=== PATIENT | female | born 1985 | race American Indian/Alaskan Native ===

== ENCOUNTER 2018-02-03 20:42 | Emergency (ER) | payer SELFPAY ==
[2018-02-03] MEDS ORDERED: NACL 0.9% 1000 ML 1,000 ML IV ONE (22:14)
[2018-02-03 22:52] LABS: Bacteria,Urine 1+ /HPF (Negative); Bilirubin,Urine NEG (Negative); Blood,Urine NEG (Negative); Color,Urine Yellow (Yellow); Mucus,Urine FEW /HPF; Protein,Urine <15 mg/dL mg/dL (Negative)
[2018-02-03 23:02] LABS: Basophils # (Auto) 0.1 K/mm3 (0.0-0.1); Basophils % (Auto) 0.4 % (0.0-1.8); Eosinophils # (Auto) 0.2 K/mm3 (0.0-0.4); Hematocrit 39.5 % (30.3-42.9); Hemoglobin 13.6 gm/dl (10.1-14.3); Lymphocytes # (Auto) 2.9 K/mm3 (1.2-5.4); Lymphocytes % (Auto) 17.5 % (13.4-35.0); Mean Corpuscular HGB Conc 34 % (30-34); Mean Corpuscular Hemoglobin 30 pg (28-32); Mean Corpuscular Volume 87 fl (79-97); Monocytes # (Auto) 0.9 K/mm3 (0.0-0.8); Monocytes % (Auto) 5.5 % (0.0-7.3); Platelet Count 225 K/mm3 (140-440); Red Blood Count 4.53 M/mm3 (3.65-5.03); Red Cell Distribution Width 14.5 % (13.2-15.2)
[2018-02-03 23:23] LABS: Alanine Aminotransferase 11 units/L (7-56); Albumin 3.8 g/dL (3.9-5); BUN/Creatinine Ratio 13; Blood Urea Nitrogen 8 mg/dL (7-17); Calcium 8.7 mg/dL (8.4-10.2); Hemolysis Index 4; Lipase 53 units/L (13-60)
--- NOTE | 2018-02-04 02:20 | Emergency Department Report ---
ED Abdominal Pain HPI - General Chief Complaint: Abdominal Pain Stated Complaint: CONSTIPATION Time Seen by Provider: 02/04/18 02:02 Source: patient Mode of arrival: Ambulatory Limitations: No Limitations - History of Present Illness Initial Comments: 32-year-old female with past medical history seizures (last seizure 10 years ago ) presents to the hospital with complaints of positive test and lower abdominal pain. Patient's LMP was December 20. She had 2 positive home test prior to ED visit. No care has been initiated. This is her first . She complains of intermittent suprapubic abdominal pain that is worse is 10/10 in intensity. Currently pain is mild and only aggravated by direct pressure. She has not had a bowel movement in 3 days. 2 episodes of vomiting today. Mild white discharge reported without odor. No vaginal bleeding, fever, or dysuria reported. - Related Data Previous Rx's Medication Instructions Recorded Last Taken Type Ondansetron [Zofran Odt] 4 mg PO Q8HR PRN #20 tab.rapdis 02/04/18 Unknown Rx Vit Calc,Iron,Folic 1 each PO DAILY #30 tablet 02/04/18 Unknown Rx [ Vitamins] Allergies Allergy/AdvReac Type Severity Reaction Status Date / Time No Known Allergies Allergy Verified 02/04/18 02:11 ED Review of Systems ROS: Stated complaint: CONSTIPATION Other details as noted in HPI Comment: All other systems reviewed and negative ED Past Medical Hx - Past Medical History Hx Seizures: Yes (last seizure was 10 years ago) - Surgical History Past Surgical History?: No - Social History Smoking Status: Current Every Day Smoker Substance Use Type: Alcohol, Marijuana - Medications Home Medications: Home Medications Medication Instructions Recorded Confirmed Last Taken Type Ondansetron [Zofran Odt] 4 mg PO Q8HR PRN #20 tab.rapdis 02/04/18 Unknown Rx Vit Calc,Iron,Folic 1 each PO DAILY #30 tablet 02/04/18 Unknown Rx [ Vitamins] ED Physical Exam - General Limitations: No Limitations - Other Other exam information: General: No limitations, patient is alert in no acute distress Head exam: Atraumatic, normocephalic Eyes exam: Normal appearance ENT: Moist mucous membrane, normal oropharynx Neck exam: Normal inspection, full range of motion, no meningismus nontender Respiratory exam: Clear to auscultation bilateral, no wheezes, rales, crackles Cardiovascular: Normal rate and rhythm, normal heart sounds Abdomen: Soft, nondistended, mild suprapubic tenderness on palpation, with normal bowel sounds, no rebound, or guarding Extremity: Full range of motion normal inspection no deformity Back: Normal Inspection, full range of motion, no tenderness Neurologic: Alert, oriented x3, cranial nerves intact, no motor or sensory deficit Psychiatric: normal affect, normal mood Skin: Warm, dry, intact ED Course Vital Signs 02/03/18 02/03/18 02/04/18 21:18 21:56 00:27 Temperature 98.6 F 98.6 F Pulse Rate 73 76 69 Respiratory 14 14 17 Rate Blood Pressure 107/69 107/69 O2 Sat by Pulse 99 99 100 Oximetry 02/04/18 00:30 Temperature Pulse Rate 74 Respiratory 22 Rate Blood Pressure 103/67 O2 Sat by Pulse 100 Oximetry ED Medical Decision Making - Lab Data Result diagrams: 02/03/18 22:35 02/03/18 22:35 Lab Results 02/03/18 02/03/18 02/03/18 Range/Units 22:14 22:35 22:35 WBC 16.3 H (4.5-11.0) K/mm3 RBC 4.53 (3.65-5.03) M/mm3 Hgb 13.6 (10.1-14.3) gm/dl Hct 39.5 (30.3-42.9) % MCV 87 (79-97) fl MCH 30 (28-32) pg MCHC 34 (30-34) % RDW 14.5 (13.2-15.2) % Plt Count 225 (140-440) K/mm3 Lymph % (Auto) 17.5 (13.4-35.0) % Wise % (Auto) 5.5 (0.0-7.3) % Eos % (Auto) 1.0 (0.0-4.3) % Baso % (Auto) 0.4 (0.0-1.8) % Lymph # 2.9 (1.2-5.4) K/mm3 Wise # 0.9 H (0.0-0.8) K/mm3 Eos # 0.2 (0.0-0.4) K/mm3 Baso # 0.1 (0.0-0.1) K/mm3 Seg Neutrophils % 75.6 H (40.0-70.0) % Seg Neutrophils # 12.4 H (1.8-7.7) K/mm3 Sodium 139 (137-145) mmol/L Potassium 4.0 (3.6-5.0) mmol/L Chloride 100.8 (98-107) mmol/L Carbon Dioxide 25 (22-30) mmol/L Anion Gap 17 mmol/L BUN 8 (7-17) mg/dL Creatinine 0.6 L (0.7-1.2) mg/dL Estimated GFR > 60 ml/min BUN/Creatinine Ratio 13 % Glucose 78 (65-100) mg/dL Calcium 8.7 (8.4-10.2) mg/dL Total Bilirubin 0.20 (0.1-1.2) mg/dL AST 15 (5-40) units/L ALT 11 (7-56) units/L Alkaline Phosphatase 39 (35-129) units/L Total Protein 5.7 L (6.3-8.2) g/dL Albumin 3.8 L (3.9-5) g/dL Albumin/Globulin Ratio 2.0 % Lipase 53 (13-60) units/L HCG, Quant (0-4) mIU/mL Urine Color Yellow (Yellow) Urine Turbidity Slightly-cloudy (Clear) Urine pH 6.0 (5.0-7.0) Ur Specific Dana 1.016 (1.003-1.030) Urine Protein <15 mg/dl (Negative) mg/dL Urine Glucose (UA) Neg (Negative) mg/dL Urine Ketones Neg (Negative) mg/dL Urine Blood Neg (Negative) Urine Nitrite Neg (Negative) Urine Bilirubin Neg (Negative) Urine Urobilinogen 2.0 (<2.0) mg/dL Ur Leukocyte Esterase Tr (Negative) Urine WBC (Auto) 6.0 (0.0-6.0) /HPF Urine RBC (Auto) 1.0 (0.0-6.0) /HPF U Epithel Cells (Auto) 6.0 (0-13.0) /HPF Urine Bacteria (Auto) 1+ (Negative) /HPF Urine Mucus Few /HPF /15/18 Range/Units 22:35 WBC (4.5-11.0) K/mm3 RBC (3.65-5.03) M/mm3 Hgb (10.1-14.3) gm/dl Hct (30.3-42.9) % MCV (79-97) fl MCH (28-32) pg MCHC (30-34) % RDW (13.2-15.2) % Plt Count (140-440) K/mm3 Lymph % (Auto) (13.4-35.0) % Wise % (Auto) (0.0-7.3) % Eos % (Auto) (0.0-4.3) % Baso % (Auto) (0.0-1.8) % Lymph # (1.2-5.4) K/mm3 Wise # (0.0-0.8) K/mm3 Eos # (0.0-0.4) K/mm3 Baso # (0.0-0.1) K/mm3 Seg Neutrophils % (40.0-70.0) % Seg Neutrophils # (1.8-7.7) K/mm3 Sodium (137-145) mmol/L Potassium (3.6-5.0) mmol/L Chloride (98-107) mmol/L Carbon Dioxide (22-30) mmol/L Anion Gap mmol/L BUN (7-17) mg/dL Creatinine (0.7-1.2) mg/dL Estimated GFR ml/min BUN/Creatinine Ratio % Glucose (65-100) mg/dL Calcium (8.4-10.2) mg/dL Total Bilirubin (0.1-1.2) mg/dL AST (5-40) units/L ALT (7-56) units/L Alkaline Phosphatase (35-129) units/L Total Protein (6.3-8.2) g/dL Albumin (3.9-5) g/dL Albumin/Globulin Ratio % Lipase (13-60) units/L HCG, Quant 65045 H (0-4) mIU/mL Urine Color (Yellow) Urine Turbidity (Clear) Urine pH (5.0-7.0) Ur Specific Dana (1.003-1.030) Urine Protein (Negative) mg/dL Urine Glucose (UA) (Negative) mg/dL Urine Ketones (Negative) mg/dL Urine Blood (Negative) Urine Nitrite (Negative) Urine Bilirubin (Negative) Urine Urobilinogen (<2.0) mg/dL Ur Leukocyte Esterase (Negative) Urine WBC (Auto) (0.0-6.0) /HPF Urine RBC (Auto) (0.0-6.0) /HPF U Epithel Cells (Auto) (0-13.0) /HPF Urine Bacteria (Auto) (Negative) /HPF Urine Mucus /HPF - Radiology Data Radiology results: report reviewed FINAL REPORT PROCEDURE: US OB TRANSVAGINAL TECHNIQUE: Real-time transabdominal and transvaginal sonography of the uterus, placenta, amniotic fluid, adnexa, and fetus was performed with image documentation. Measurements were obtained to determine age/size. M-mode Doppler was used to document heartbeat. CPT 34142 and 81511 HISTORY: abd pain + test COMPARISON: No prior studies are available for comparison. FINDINGS: ADDITIONAL GESTATION: None. Yolk Sac: Normal. Gestational Sac: There is a gestational sac within the uterus. The gestational sac size of 10 millimeters corresponds to gestational age of approximately 5 weeks. No pole is identified. The yolk sac is seen. Cervix: Normal. Right Ovary: Normal. Left Ovary: There is a large dominant cyst on the left ovary this measures 38 millimeters. Uterus and adnexa: As above IMPRESSION: There is a gestational sac within the uterus. A yolk sac is identified. The gestational age is approximately 5 weeks. No pole is seen at this time. Recheck study in approximately 14 days would be appropriate. Dominant cyst left ovary measures 38 millimeters. FINAL REPORT PROCEDURE: US OB transabdominal and transvaginal TECHNIQUE: Real- time transabdominal and transvaginal sonography of the uterus, placenta, amniotic fluid, adnexa, and fetus was performed with image documentation. Measurements were obtained to determine age/size. M-mode Doppler was used to document heartbeat. CPT 19727 and 26029 HISTORY: abd pain + test COMPARISON: No prior studies are available for comparison. FINDINGS: ADDITIONAL GESTATION: None. Yolk Sac: Normal. Gestational Sac: There is a gestational sac within the uterus. The gestational sac size of 10 millimeters corresponds to gestational age of approximately 5 weeks. No pole is identified. The yolk sac is seen. Cervix: Normal. Right Ovary: Normal. Left Ovary: There is a large dominant cyst on the left ovary this measures 38 millimeters. Uterus and adnexa: As above IMPRESSION: There is a gestational sac within the uterus. A yolk sac is identified. The gestational age is approximately 5 weeks. No pole is seen at this time. Recheck study in approximately 14 days would be appropriate. Dominant cyst left ovary measures 38 millimeters. - Medical Decision Making Patient with intermittent pelvic pain +5 week IUP Urine and other labs unremarkable Plan to discharge with Tylenol and Zofran when necessary pain and nausea [employer]ER follow-up - Differential Diagnosis , UTI, PID, ectopic Critical Care Time: No Critical care attestation.: If time is entered above; I have spent that time in minutes in the direct care of this critically ill patient, excluding procedure time. ED Disposition Clinical Impression: 5 weeks gestation of Disposition: DC- TO HOME OR SELFCARE Is pt being admited?: No Does the pt Need Aspirin: No Condition: Stable Instructions: (ED) Additional Instructions: Take the medication as prescribed. Follow up with your doctor. Return if symptoms worsen as indicated by your discharge instructions Prescriptions: Ondansetron [Zofran Odt] 4 mg PO Q8HR PRN #20 tab.rapdis PRN Reason: Nausea And Vomiting Vit Calc,Iron,Folic [ Vitamins] 1 each PO DAILY #30 tablet Referrals: [facility] [Provider Group] - 3-5 Days Forms: Work/School Release Form(ED) Time of Disposition: 04:20
--- NOTE | 2018-02-04 03:23 | Ultrasound Report ---
FINAL REPORT PROCEDURE: US OB TRANSVAGINAL TECHNIQUE: Real-time transabdominal and transvaginal sonography of the uterus, placenta, amniotic fluid, adnexa, and fetus was performed with image documentation. Measurements were obtained to determine age/size. M-mode Doppler was used to document heartbeat. CPT 47371 and 49482 HISTORY: abd pain + test COMPARISON: No prior studies are available for comparison. FINDINGS: ADDITIONAL GESTATION: None. Yolk Sac: Normal. Gestational Sac: There is a gestational sac within the uterus. The gestational sac size of 10 millimeters corresponds to gestational age of approximately 5 weeks. No pole is identified. The yolk sac is seen. Cervix: Normal. Right Ovary: Normal. Left Ovary: There is a large dominant cyst on the left ovary this measures 38 millimeters. Uterus and adnexa: As above IMPRESSION: There is a gestational sac within the uterus. A yolk sac is identified. The gestational age is approximately 5 weeks. No pole is seen at this time. Recheck study in approximately 14 days would be appropriate. Dominant cyst left ovary measures 38 millimeters.
--- NOTE | 2018-02-04 03:24 | Ultrasound Report ---
FINAL REPORT PROCEDURE: US OB transabdominal and transvaginal TECHNIQUE: Real-time transabdominal and transvaginal sonography of the uterus, placenta, amniotic fluid, adnexa, and fetus was performed with image documentation. Measurements were obtained to determine age/size. M-mode Doppler was used to document heartbeat. CPT 07392 and 24604 HISTORY: abd pain + test COMPARISON: No prior studies are available for comparison. FINDINGS: ADDITIONAL GESTATION: None. Yolk Sac: Normal. Gestational Sac: There is a gestational sac within the uterus. The gestational sac size of 10 millimeters corresponds to gestational age of approximately 5 weeks. No pole is identified. The yolk sac is seen. Cervix: Normal. Right Ovary: Normal. Left Ovary: There is a large dominant cyst on the left ovary this measures 38 millimeters. Uterus and adnexa: As above IMPRESSION: There is a gestational sac within the uterus. A yolk sac is identified. The gestational age is approximately 5 weeks. No pole is seen at this time. Recheck study in approximately 14 days would be appropriate. Dominant cyst left ovary measures 38 millimeters.
[2018-02-04 04:27] VITALS: BP 107/71
== END 2018-02-04 04:45 | disposition home or self-care (01) ==
LOC: ED 20:42
DX: O26.891 Other specified pregnancy related conditions, first trimester (principal); O21.9 Vomiting of pregnancy, unspecified; R10.2 Pelvic and perineal pain; N89.8 Other specified noninflammatory disorders of vagina; K59.00 Constipation, unspecified; Z3A.01 Less than 8 weeks gestation of pregnancy
CPT/HCPCS: 36415; 76801; 76817; 80053; 81001; 83690; 84702; 85025

== ENCOUNTER 2018-10-02 14:56 | Outpatient (CLI) | payer OTHER ==
[2018-10-02 15:19] VITALS: BP 132/86
[2018-10-02 16:06] LABS: Bilirubin,Urine NEG (Negative); Blood,Urine MOD (Negative); Color,Urine Yellow (Yellow); Mucus,Urine FEW /HPF; Urobilinogen,Urine < 2.0 mg/dL (<2.0)
== END 2018-10-02 17:04 | disposition home or self-care (01) ==
LOC: TRG 14:56
PROVIDERS: ATTEND Obstetrics & Gynecology
DX: O47.1 False labor at or after 37 completed weeks of gestation (principal); Z3A.39 39 weeks gestation of pregnancy
CPT/HCPCS: 81001

== ENCOUNTER 2018-10-07 07:25 | Inpatient (IN) | payer OTHER ==
[2018-10-07] MEDS ORDERED: LACTATED RINGERS 1,000 ML ONE (07:36)
[2018-10-07] MEDS ORDERED: AMPICILLIN/NS 2 GM/100 ML 2 GM/100 ML BAG IV ONE (09:00)
[2018-10-07] MEDS ORDERED: BRETHINE IVP PRN (09:00)
[2018-10-07] MEDS ORDERED: XYLOCAINE 2% INFILTRATI ONE (09:00)
[2018-10-07] MEDS ORDERED: BRETHINE SUB-Q PRN (09:00)
[2018-10-07] MEDS ORDERED: SUBLIMAZE IV PRN (09:00)
[2018-10-07] MEDS ORDERED: ZOFRAN IV PRN ×2 (09:00→17:06)
[2018-10-07] MEDS ORDERED: LACTATED RINGERS 1,000 ML IV SCH (09:00)
[2018-10-07] MEDS ORDERED: PITOCin/NS 20 UNIT/1000ML DRIP 20 UNITS/1,000 ML BAG IV SCH ×2 (09:00→18:00)
--- NOTE | 2018-10-07 09:06 | History and Physical Report ---
History of Present Illness Date of examination: 10/07/18 Date of admission: 10/07/18 08:58 Chief complaint: SROM clear at 0615 History of present illness: Menstrual History Regularity: regular Menses every: 28 days Duration: 3-5 LMP: 11/2017 LMP reliability: month known test type: urine test Date: 02/21/2018 BC at conception: none Planned ? 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 of genital herpes: no Rash, Viral, or Febrile illness since last LMP? no Varicella/Chicken Pox Status: Previous Disease Genetic History Congenital Heart Defect: Mom: no Dad: no Katy Disease: Mom: no Dad: no Thalassemia Mom: no Dad: no Neural Tube Defect Mom: no Dad: no Down's Syndrome Mom: no Dad: no Silver-Sachs Mom: no Dad: no Sickle Cell Disease/Trait Mom: no Dad: no Hemophilia Mom: no Dad: no Muscular Dystrophy Mom: no Dad: no Cystic Fibrosis Mom: no Dad: no Barnes Chorea Mom: no Dad: no Mental Retardation Mom: no Dad: no Fragile X Mom: no Dad: no Other Genetic/Chromosomal Disorder Mom: no Dad: no Child w/other defect Mom: no Dad: no Enviromental Exposures Xray Exposure: no Medication, drug, or alcohol use since LMP: no Chemical/Other Exposure: no Exposure to Cat Liter: no Hx of Parvovirus (Fifth Disease): no Occupational Exposure to Children: none Active Medications (reviewed today): PROMETHAZINE HCL 25 MG ORAL TABLET (PROMETHAZINE HCL) 1 tab po q6hrs prn PNV () Current Allergies (reviewed today): No known allergies Past History Past Medical History: other (see HPI) Past Surgical History: other (see HPI) PEDIATRIC NEPHROLOGIST History: other (see HPI) Family/Genetic History: other (see HPI) Social history: other (see HPI) - Obstetrical History Expected Date of Delivery: 10/04/18 Actual Gestation: 40 Week(s) 3 Day(s) : 1 Medications and Allergies Allergies Allergy/AdvReac Type Severity Reaction Status Date / Time No Known Allergies Allergy Verified 02/04/18 02:11 Home Medications Medication Instructions Recorded Confirmed Last Taken Type Ondansetron [Zofran Odt] 4 mg PO Q8HR PRN #20 tab.rapdis 02/04/18 Unknown Rx Vit Calc,Iron,Folic 1 each PO DAILY #30 tablet 02/04/18 Unknown Rx [ Vitamins] Active Meds: Active Medications Butorphanol Tartrate (Stadol) 2 mg IV Q2H PRN PRN Reason: Pain , Severe (7-10) Ephedrine Sulfate (Ephedrine Sulfate) 10 mg IV Q2M PRN PRN Reason: Hypotension Fentanyl (Sublimaze) 100 mcg IV Q2H PRN PRN Reason: Labor Pain Oxytocin/Sodium Chloride (Pitocin/Ns 20 Unit/1000ml Drip) 20 units in 1,000 mls @ 125 mls/hr IV DIRECT MICHELLE Oxytocin/Sodium Chloride (Pitocin/Ns 30 Unit/500ml) 30 units in 500 mls @ 4 mls/hr IV TITR MICHELLE; Protocol Lactated Ringer's (Lactated Ringers) 1,000 mls @ 125 mls/hr IV DIRECT MICHELLE Ampicillin Sodium (Ampicillin/Ns 1 Gm/50 Ml) 1 gm in 50 mls @ 100 mls/hr IV Q4HR MICHELLE; Protocol Ampicillin Sodium (Polycillin/Ns 2 Gm/100 Ml) 2 gm in 100 mls @ 100 mls/hr IV ONCE ONE; Protocol Stop: 10/07/18 09:59 Mineral Oil (Mineral Oil) 30 ml PO QHS PRN PRN Reason: Constipation Ondansetron HCl (Zofran) 4 mg IV Q8H PRN PRN Reason: Nausea And Vomiting Terbutaline Sulfate (Brethine) 0.25 mg SUB-Q ONCE PRN PRN Reason: Hyperstimulation/Hypertonicity Terbutaline Sulfate (Brethine) 0.25 mg IVP ONCE PRN PRN Reason: Hyperstimulation/Hypertonicity Review of Systems All systems: negative Genitourinary: leakage of fluid, contractions - Vital Signs Vital signs: Vital Signs Pulse BP 84 168/108 10/07/18 07:41 10/07/18 07:41 Temp Pulse Resp BP Pulse Ox 88 158/95 10/07/18 08:34 10/07/18 08:34 - Physical Exam Breasts: Positive: normal Cardiovascular: Regular rate, Normal S1, Normal S2 Lungs: Positive: Clear to auscultation Abdomen: Positive: normal appearance, soft, normal bowel sounds. Negative: distention, tenderness Vulva: both: normal Vagina: Positive: normal moisture. Negative: discharge Cervix: Negative: lesion, discharge Uterus: Positive: normal size, normal contour Adnexa: both: normal Anus/Rectum: Positive: normal perianal skin, heme negative. Negative: rectal mass, hemorrhoids Extremities: Deep Tendon Reflex Grade: Normal +2 - Obstetrical FHR: auscultation normal, category 1 Uterine Contraction Monitor Mode: External Cervical Dilatation: 1 Cervical Effacement Percentage: 100 station: -1 Uterine Contraction Pattern: Irregular Uterine Tone Measurement Phase: Contraction Uterine Contraction Intensity: Mild Results Result Diagrams: 10/07/18 07:21 10/07/18 07:21 All other labs normal. Assessment and Plan 33 y.o. at 40w3d presents to triage via EMS for c/o "my water broke". Spec exam shows pooling of clear amniotic fluid coming from cervix, nitrizine +, SVE 1/100/-1 vtx. Elevated BPs noted, PIH labs sent. Patient denies any PIH s/s at this time. Routine admission orders and magnesium per protocol in EMR. Pt is GBS +, abx ordered. Will begin pitocin at this time, anticipate . Dr. Kaiser aware of assessment and admission.
[2018-10-07 09:07] LABS: Hematocrit 35.3 % (30.3-42.9); Hemoglobin 11.9 gm/dl (10.1-14.3); Mean Corpuscular HGB Conc 34 % (30-34); Mean Corpuscular Volume 87 fl (79-97); Platelet Count 174 K/mm3 (140-440); Red Blood Count 4.08 M/mm3 (3.65-5.03); Red Cell Distribution Width 14.9 % (13.2-15.2)
[2018-10-07 09:17] LABS: Alanine Aminotransferase 10 units/L (7-56); Uric Acid 6.6 mg/dL (3.5-7.6)
[2018-10-07] MEDS ORDERED: MAGNESIUM SULFATE 4GM/100ML 4 GM/100 ML BAG IV ONE (09:21)
[2018-10-07 09:35] LABS: Bacteria,Urine 1+ /HPF (Negative); Bilirubin,Urine NEG (Negative); Blood,Urine SM (Negative); Color,Urine Straw (Yellow); Mucus,Urine FEW /HPF; Urobilinogen,Urine < 2.0 mg/dL (<2.0)
[2018-10-07 09:41] LABS: Amphetamine Screen,Urine PRESUMPTIVE NEGATIVE; Benzodiazepines Screen,Urine PRESUMPTIVE NEGATIVE; Cannabinoid Screen,Urine PRESUMPTIVE NEGATIVE; Cocaine Screen,Urine PRESUMPTIVE NEGATIVE; Methadone Screen,Urine PRESUMPTIVE NEGATIVE; Opiate Screen,Urine PRESUMPTIVE NEGATIVE
[2018-10-07] MEDS ORDERED: MAGNESIUM SULFATE 40GM/1000ML 40 GM/1,000 ML BAG IV SCH (10:00)
[2018-10-07] MEDS: PITOCin/NS 30 UNIT/500ML 30 UNITS/500 ML BAG IV SCH ×2 (11:15→12:27)
[2018-10-07] MEDS: STADOL IV PRN ×2 (12:24→15:30)
[2018-10-07] MEDS ORDERED: AMPICILLIN/NS 1 GM/50 ML 1 GM/50 ML BAG IV SCH (14:00)
[2018-10-07] MEDS ORDERED: APRESOLINE IV PRN ×2 (14:18→17:21)
--- NOTE | 2018-10-07 14:23 | Event Note ---
Date: 10/07/18 SVE 1.5/100/-1. Category 1 tracing at this time. MVUs approx 265. Pitocin infusing at 20mu/min. Patient reports intense pain, IV stadol has been given x1. Patient declines epidural stating "I don't want to be paralyzed". DWP epidural process and offered patient to speak with anesthesia instrumentation tech, she declined. BPs 160s/90s. Magnesium is currently infusing, assessment WNL. Dr. Kaiser notified of patient assessment. Orders in chart.
[2018-10-07] MEDS: NORMODYNE PO SCH (14:38)
[2018-10-07] MEDS ORDERED: APRESOLINE ONE (15:31)
--- NOTE | 2018-10-07 15:47 | Event Note ---
Date: 10/07/18 Patient called out c/o "I feel like the head is coming out". SVE 6.5/100/0. Severe range BPs noted with return to baseline with one dose of IV hydralazine. Patient reports increase in pain and rectal pressure, declines epidural. IV stadol given. Dr. Kaiser aware of assessment. Will continue to monitor. Anticipate .
[2018-10-07] MEDS ORDERED: CYTOTEC ONE (15:59)
[2018-10-07] MEDS ORDERED: HEMABATE IM ONE ×2 (16:00→16:48)
[2018-10-07] MEDS ORDERED: LOMOTIL PO PRN (17:04)
[2018-10-07] MEDS ORDERED: LOMOTIL ONE (17:05)
[2018-10-07] MEDS ORDERED: TYLENOL PO PRN (17:06)
[2018-10-07] MEDS ORDERED: LANSINOH TP PRN (17:06)
[2018-10-07] MEDS ORDERED: PHENERGAN PO PRN (17:06)
[2018-10-07] MEDS ORDERED: DULCOLAX PR PRN (17:06)
[2018-10-07] MEDS ORDERED: PHENERGAN PR PRN (17:06)
[2018-10-07] MEDS ORDERED: BENADRYL PO PRN (17:06)
[2018-10-07] MEDS ORDERED: TUCKS PAD TP PRN (17:06)
[2018-10-07] MEDS ORDERED: HEMABATE IM PRN (17:29)
--- NOTE | 2018-10-07 17:40 | Procedure Note ---
OB Delivery Note - Delivery Date of Delivery: 10/07/18 Vehicle Safety Inspector: STEVE THIBODEAUX Estimated blood loss: other (650) - Vaginal Delivery presentation: vertex Delivery position: OA (YVETTE) Intrapartum events: meconium (terminal), hemorrhage, uterine atony Delivery induction: none Delivery augmentation: pitocin Delivery monitor: external FHT, internal uterine Route of delivery: Delivery placenta: spontaneous Episiotomy: none Delivery laceration: 2nd degree Delivery repair: vicryl Anesthesia: local, intravenous Delivery comments: of viable female . head delivered over intact perineum, shoulder dystocia recognized and assistance called into room. anterior shoulder delivered within 45 seconds with jan and suprapubic pressure. infant placed on mothers abdomen, cord clamped x2 and cut, infant taken to warmer to awaiting NICU/Resus team for assessment. placenta delivered complete and intact, 3vc. H eavy vaginal bleeding noted d/t uterine atony. pitocin to IV, cytotec and hemabate given. 2nd degree perineal laceration repaired in the normal fashion. moderate vaginal bleeding noted. pitocin IM given. fundus firm, ML. hemostasis achieved. EBL 650. vssaf. weight 8#13, apgars 7/9. mother and infant LDR stable. - A at 1 minute: 7 at 5 minutes: 9 Infant Gender: Female (8#13)
[2018-10-07] MEDS ORDERED: SODIUM CHLORIDE FLUSH SYRINGE 10 ML IV SCH (18:00)
[2018-10-07] MEDS ORDERED: MINERAL OIL PO PRN (22:00)
[2018-10-08] MEDS: NORMODYNE PO SCH ×3 (01:36→22:12)
[2018-10-08] MEDS: IBUPROFEN PO SCH ×5 (05:39→18:00)
--- NOTE | 2018-10-08 06:00 | Progress Note ---
Assessment and Plan - Patient Problems (1) Pre-eclampsia Onset Date: ~10/08/18 Current Visit: Yes Status: Acute Plan to address problem: Pt is 14 hours post delivery. MGSO4 @ 1gm/hr BP 120-110/60 Lungs clear IS at bedside Instructed to use several times per hour. FF below umb Lochia small Perineum slight swelling intact. Pitocin completed. Labs arrived @ 0600 to draw Mag level(0200) and H&H Pt denies BARAJAS, blurred vision, chest pain. Doing well s/p vag delivery; PreE now on MGSO4 and Labetalol 200mg BID P: continue pathway Will transfer to M/B this afternoon if stable. Subjective - Subjective Date of service: 10/08/18 (pt w/o complaint) Principal diagnosis: Day # 1 s/p ; Pre-E MGSO4 X 24hr Patient reports: voiding normally (clear yellow urine into lu bag) Ansley: doing well Objective - Vital Signs Latest vital signs: Vital Signs Temp Pulse BP Pulse Ox 10/08/18 05:38 88 107/61 10/08/18 05:08 88 112/62 10/08/18 04:38 91 H 107/62 10/08/18 04:08 89 110/60 10/08/18 03:38 93 H 114/67 10/08/18 03:08 100 H 128/64 10/08/18 02:38 96 H 111/67 10/08/18 02:08 96 H 95/52 10/08/18 01:38 106 H 126/73 10/08/18 01:36 111 H 120/68 10/08/18 01:08 111 H 120/68 10/08/18 00:38 101 H 118/66 10/08/18 00:08 108 H 117/59 10/07/18 23:38 103 H 123/69 10/07/18 23:08 96 H 153/90 10/07/18 22:38 99 H 139/71 10/07/18 22:08 107 H 120/85 10/07/18 21:08 99 H 140/89 10/07/18 20:08 90 126/76 10/07/18 19:38 88 130/69 10/07/18 19:08 86 148/95 10/07/18 19:01 93 H 149/81 10/07/18 18:47 98 H 141/79 10/07/18 18:31 92 H 144/87 10/07/18 18:16 93 H 137/82 10/07/18 18:11 97 H 133/78 10/07/18 18:10 95 H 137/77 10/07/18 18:01 103 H 123/73 10/07/18 17:46 101 H 127/78 10/07/18 17:32 102 H 132/81 10/07/18 16:42 113 H 142/81 10/07/18 16:33 59 L 96 10/07/18 16:30 86 10/07/18 16:28 125 H 96 10/07/18 16:23 125 H 98 10/07/18 16:18 135 H 98 10/07/18 16:13 130 H 99 10/07/18 16:08 123 H 99 10/07/18 16:03 116 H 98 10/07/18 15:58 114 H 99 10/07/18 15:53 112 H 99 10/07/18 15:48 114 H 98 10/07/18 15:43 109 H 99 10/07/18 15:41 104 H 159/96 10/07/18 15:38 111 H 99 10/07/18 15:23 99 H 183/95 10/07/18 15:15 109 H 189/93 10/07/18 15:00 94 H 189/88 10/07/18 14:44 93 H 140/82 10/07/18 14:38 92 H 150/89 10/07/18 14:37 92 H 150/89 10/07/18 14:29 90 133/73 10/07/18 14:14 90 135/72 10/07/18 13:59 89 163/100 10/07/18 13:44 85 167/99 10/07/18 13:29 89 161/96 10/07/18 13:14 96 H 165/97 10/07/18 12:59 99 H 147/88 10/07/18 12:44 99 H 151/91 10/07/18 12:29 93 H 148/88 10/07/18 12:14 93 H 159/92 10/07/18 11:59 87 184/103 10/07/18 11:44 88 167/97 05/19/19 11:29 90 164/98 05/19/19 11:15 89 158/95 10/07/18 10:44 87 157/96 10/07/18 10:29 88 180/105 10/07/18 10:14 91 H 138/88 10/07/18 09:21 88 171/103 10/07/18 09:13 97.8 F 10/07/18 08:34 88 158/95 10/07/18 08:18 88 159/89 10/07/18 08:12 94 H 171/110 10/07/18 08:01 94 H 182/106 10/07/18 07:50 89 180/115 10/07/18 07:41 84 168/108 10/07/18 07:30 98.4 F Intake and Output 10/07/18 10/07/18 10/08/18 14:59 22:59 06:59 Intake Total 0 Output Total 1200 550 Balance -1200 -550 Intake: IV 0 PITOCin/NS 30 UNIT/500ML 0 30 units In 500 ml @ 4 mls/hr IV TITR MICHELLE Rx#: [id number] Output: Urine 1200 550 Indwelling Catheter 1200 550 Other: Total, Output Amount 600 550 Weight 189 lb Estimated Blood Loss 650 Patient Weight 10/08/18 06:59 Weight 189 lb - Exam Breasts: Present: normal Cardiovascular: Present: Regular rate Lungs: Present: Clear to auscultation Abdomen: Present: normal appearance, soft, normal bowel sounds Vulva: both: laceration/episiotomy (slight swelling intact) Uterus: Present: normal, fundal height below umbilicus Extremities: Present: normal Deep Tendon Reflex Grade: Normal +2 Incision: Present: normal, edematous, intact - Labs Labs: Abnormal lab results 10/07/18 10/07/18 10/07/18 Range/Units 07:21 13:51 20:24 Creatinine 0.6 L (0.7-1.2) mg/dL Magnesium 4.00 H 3.50 H (1.7-2.3) mg/dL Lactate Dehydrogenase 204 H (91-180) units/L
[2018-10-08 17:20] LABS: Hematocrit 24.6 % (30.3-42.9); Hemoglobin 8.7 gm/dl (10.1-14.3)
[2018-10-09] MEDS: IBUPROFEN PO SCH ×2 (00:08→06:03)
[2018-10-09] MEDS ORDERED: BOOSTRIX IM ONE (06:00)
--- NOTE | 2018-10-09 08:42 | Discharge Summary ---
Providers - Providers Date of Admission: 10/07/18 08:58 Date of discharge: 10/09/18 (desires d/c home today) Attending physician: PLACIDO CHANG 10/07/18 17:07 Consult to [employer] Apprentice [CONS] Routine Reason For Exam: assistance with , SNS Primary care physician: PLACIDO CHANG Hospitalization Reason for admission: SROM Condition: Good Pertinent studies: H&H 8.4/24.6 (anemia from blood loss, acute), pre-e labs normal except for 1+ protein Procedures: Hospital course: and course complicated by shoulder dystocia, PPH and pre-e Disposition: DC-01 TO HOME OR SELFCARE - Discharge Diagnoses (1) (spontaneous vaginal delivery) Status: Acute (2) Anemia due to blood loss, acute Status: Acute Core Measure Documentation - Palliative Care Palliative Care/ Comfort Measures: Not Applicable - Core Measures Any of the following diagnoses?: none Exam - Constitutional Vitals: Temp Pulse Resp BP Pulse Ox 98.0 F 96 H 16 132/82 97 10/09/18 04:43 10/08/18 22:12 10/09/18 04:43 10/09/18 04:43 10/08/18 17:55 General appearance: Present: no acute distress, well-nourished - EENT Eyes: Present: PERRL ENT: hearing intact, clear oral mucosa - Neck Neck: Present: supple, normal ROM - Respiratory Respiratory effort: normal Respiratory: bilateral: CTA - Cardiovascular Heart Sounds: Present: S1 & S2. Absent: rub, click - Extremities Extremities: pulses symmetrical, No edema Peripheral Pulses: within normal limits - Abdominal General gastrointestinal: Present: soft, non-tender, non-distended, normal bowel sounds Female genitourinary: Present: normal - Integumentary Integumentary: Present: clear, warm, dry - Musculoskeletal Musculoskeletal: gait normal, strength equal bilaterally - Psychiatric Psychiatric: appropriate mood/affect, intact judgment & insight - Neurologic Neurologic: CNII-XII intact, moves all extremities - Additional findings Additional findings: lochia scant, fundus firm, b/p's 130's/70-80's on Labetalol 200mg PO BID Plan Activity: no restrictions Diet: regular Follow up with: PLACIDO CHANG MD [Primary Care Provider] - 7 Days (Congratulations! Please call [phone] to schedule a blood pressure check in 1 week. Call for any questions, concerns or if your have a headache, changes in your vision or pain i n your chest.) Prescriptions: Ferrous Sulfate [Feosol 325 MG tab] 325 mg PO BID #60 tablet Ibuprofen [Motrin 800 MG tab] 800 mg PO Q8HR PRN #30 tablet PRN Reason: Pain Labetalol [Normodyne TAB] 200 mg PO BID #60 tablet
[2018-10-09] MEDS: NORMODYNE PO SCH (09:53)
[2018-10-09 14:04] VITALS: BP 133/82
== END 2018-10-09 14:12 | disposition home or self-care (01) | DRG 774 ==
LOC: TRG 07:25 → LD 08:58 → OB 10-08 17:18
PROVIDERS: ADMIT Obstetrics & Gynecology; ATTEND Obstetrics & Gynecology
PROC: 10E0XZZ Delivery of Products of Conception, External Approach (ICD-10-PCS; principal; 2018-10-07)
PROC: 0KQM0ZZ Repair Perineum Muscle, Open Approach (ICD-10-PCS; 2018-10-07)
PROC: 3E0234Z Introduction of Serum, Toxoid and Vaccine into Muscle, Percutaneous Approach (ICD-10-PCS; 2018-10-09)
DX: O99.824 Streptococcus B carrier state complicating childbirth (principal); O72.1 Other immediate postpartum hemorrhage; O66.0 Obstructed labor due to shoulder dystocia; O77.0 Labor and delivery complicated by meconium in amniotic fluid; O70.1 Second degree perineal laceration during delivery; O14.94 Unspecified pre-eclampsia, complicating childbirth; O90.81 Anemia of the puerperium; D62 Acute posthemorrhagic anemia; Z3A.40 40 weeks gestation of pregnancy; Z37.0 Single live birth; Z23 Encounter for immunization
CPT/HCPCS: 36415; 80307; 81001; 82565; 83615; 83735; 84450; 84460; 84550; 85014; 85018; 85027; 86592; 86850; 86900; 86901; 90471; 90715; G0378; J0290; J0360; J0595; J2590; J3010; J3475; J7120